=== PATIENT | female | born 1985 | race Two or more races ===

== ENCOUNTER 2017-09-06 16:36 | Emergency (ER) | payer MEDICAID ==
[~2017-09-06] VITALS: Ht 165.1 cm; Wt 59.0 kg
[~2017-09-06 16:36] MED LIST: NORPTMEDS CO
[2017-09-06 16:40] VITALS: BP 108/78
== END 2017-09-06 21:55 | disposition left against medical advice (07) ==
LOC: ER 16:36 → EDBD 16:36 → ER 21:55
DX: M54.9 Dorsalgia, unspecified (principal); Z53.21 Procedure and treatment not carried out due to patient leaving prior to being seen by health care provider

== ENCOUNTER 2019-07-14 19:50 | Emergency (ER) | payer MEDICAID ==
[~2019-07-14] VITALS: Ht 160 cm; Wt 45.4 kg
== END 2019-07-14 20:23 | disposition left against medical advice (07) ==
LOC: ER 19:53
DX: Z02.89 Encounter for other administrative examinations (principal); Z53.21 Procedure and treatment not carried out due to patient leaving prior to being seen by health care provider

== ENCOUNTER → 2025-06-28 | Emergency (ER) | payer MEDICAID | END | disposition left against medical advice (07) | LOC: ER 22:45 | DX: M25.571 Pain in right ankle and joints of right foot (principal); M79.601 Pain in right arm; Z53.21 Procedure and treatment not carried out due to patient leaving prior to being seen by health care provider ==